=== PATIENT | male | born 1950 | race Caucasian/White ===

== ENCOUNTER 2021-09-30 18:16 | Outpatient (REF) | payer MEDICARE, MEDICAID, SELFPAY ==
[2021-09-30 18:27] LABS: Appearance Urine CLEAR; Color Urine YELLOW; Glucose Urine UA NEG (NEG); Leukocyte Esterase Urine TRACE (NEG); Nitrite Urine NEG (NEG); UACC Culture Trigger YES; Urine Blood NEG (NEG); Urine Ketones NEG (NEG); Urine Protein NEG (NEG-TRACE)
[2021-09-30 18:55] LABS: Mucus Urine 2+ /LPF; Squamous Epithelial Cell Urine 1+ /LPF
[2021-09-30 18:56] LABS: Bacteria Urine TRACE /LPF; RBC Urine 0-2 /HPF (0)
== END 2021-09-30 18:17 | disposition home or self-care (01) ==
LOC: HO.LNP 18:16
PROVIDERS: Visit Provider Nurse Practitioner Acute Care
DX: N39.0 Urinary tract infection, site not specified (principal)
CPT/HCPCS: 81001; 87086

== ENCOUNTER 2021-11-12 08:46 | Outpatient (REF) | payer MEDICARE, MEDICAID, SELFPAY ==
[2021-11-12 11:21] LABS: MANUAL DIFF FLAG NO
[2021-11-12 11:30] LABS: Basophils Percent Auto 0.3 % (0-2); Eosinophils Absolute Auto 0.2 X10*3/uL (0.0-0.4); Eosinophils Percent Auto 1.8 % (0-4); Hematocrit 43.2 % (42.0-52.0); Hemoglobin 13.7 g/dl (14.0-18.0); Imm Gran Abs Auto 0.03 X10*3/uL (0.00-0.03); Imm Gran Pct Auto 0.3 % (0.0-0.4); Lymphocytes Absolute Auto 3.1 X10*3/uL (1.2-4.9); Lymphocytes Percent Auto 29.4 % (20-40); Mean Corpuscular HGB Conc 31.7 g/dl (31.0-36.0); Mean Corpuscular Hemoglobin 31.6 pg (27.0-33.0); Mean Corpuscular Volume 99.8 fL (80.0-98.0); Mean Platelet Volume 9.7 fL (9.4-12.4); Monocytes Percent Auto 9.7 % (2-11); Neutrophils Absolute Auto 6.1 x10*3/uL (2.0-8.3); Neutrophils Percent Auto 58.5 % (45-73); Platelet Count 233 X10*3/uL (160-400); Red Blood Count 4.33 X10*6/uL (4.60-5.80); Red Cell Distribution Width 13.4 % (11.0-16.0); White Blood Count 10.5 X10*3/uL (4.8-10.8)
[2021-11-12 11:39] LABS: Estimated Average Glucose 183 mg/dL
[2021-11-12 12:21] LABS: Alanine Aminotransferase 35 U/L (0-40); Alkaline Phosphatase 67 U/L (39-117); Anion Gap 16 (12-20); Aspartate Amino Transferase 24 U/L (5-37); Bilirubin Total 0.7 mg/dL (0.0-1.0); Blood Urea Nitrogen 16 mg/dL (9-16); Calcium 9.3 mg/dL (8.4-10.2); Carbon Dioxide 28 mmol/L (22-29); Chloride 99 mmol/L (96-108); Cholesterol 138 mg/dL; Estimated Glomerular Filt Rate > 60; Glucose Random 168 mg/dL (60-115); HDL Cholesterol 47 mg/dL; LDL Cholesterol Calculated 57 mg/dl; Potassium 4.2 mmol/L (3.3-5.1); Sodium 139 mmol/L (135-145); Total Protein 7.1 g/dL (6.5-8.0); Triglycerides 173 mg/dL
[2021-11-12 12:23] LABS: Free T4 (Free Thyroxine) 1.13 ng/dL (0.71-1.85)
== END 2021-11-12 08:47 | disposition home or self-care (01) ==
LOC: HO.HMGCLDS 08:46
PROVIDERS: PCP Internal Medicine; Visit Provider Nurse Practitioner Acute Care
DX: I10 Essential (primary) hypertension (principal); E11.65 Type 2 diabetes mellitus with hyperglycemia; E78.00 Pure hypercholesterolemia, unspecified
CPT/HCPCS: 36415; 80053; 80061; 83036; 84439; 85025

== ENCOUNTER 2022-08-17 09:43 | Outpatient (REF) | payer MEDICARE, MEDICAID, SELFPAY ==
[2022-08-17 11:29] LABS: MANUAL DIFF FLAG NO
[2022-08-17 11:42] LABS: Basophils Percent Auto 0.3 % (0-2); Eosinophils Absolute Auto 0.2 X10*3/uL (0.0-0.4); Eosinophils Percent Auto 1.4 % (0-4); Hematocrit 41.4 % (42.0-52.0); Hemoglobin 13.6 g/dl (14.0-18.0); Imm Gran Abs Auto 0.04 X10*3/uL (0.00-0.03); Imm Gran Pct Auto 0.4 % (0.0-0.4); Lymphocytes Absolute Auto 2.3 X10*3/uL (1.2-4.9); Lymphocytes Percent Auto 21.9 % (20-40); Mean Corpuscular HGB Conc 32.9 g/dl (31.0-36.0); Mean Corpuscular Hemoglobin 31.3 pg (27.0-33.0); Mean Corpuscular Volume 95.2 fL (80.0-98.0); Mean Platelet Volume 9.6 fL (9.4-12.4); Monocytes Absolute Auto 0.9 X10*3/uL (0.1-1.2); Monocytes Percent Auto 8.8 % (2-11); Neutrophils Percent Auto 67.2 % (45-73); Platelet Count 263 X10*3/uL (160-400); Red Blood Count 4.35 X10*6/uL (4.60-5.80); Red Cell Distribution Width 12.8 % (11.0-16.0); White Blood Count 10.5 X10*3/uL (4.8-10.8)
[2022-08-17 12:12] LABS: Alanine Aminotransferase 15 U/L (0-40); Albumin Level 4.6 g/dL (3.5-5.0); Alkaline Phosphatase 64 U/L (39-117); Anion Gap 17 (12-20); Aspartate Amino Transferase 15 U/L (5-37); Bilirubin Total 0.7 mg/dL (0.0-1.0); Blood Urea Nitrogen 13 mg/dL (9-16); Calcium 9.4 mg/dL (8.4-10.2); Carbon Dioxide 29 mmol/L (22-29); Chloride 91 mmol/L (96-108); Cholesterol 131 mg/dL; Estimated Glomerular Filt Rate > 60; Glucose Random 146 mg/dL (60-115); HDL Cholesterol 51 mg/dL; LDL Cholesterol Calculated 52 mg/dl; Potassium 4.5 mmol/L (3.3-5.1); Sodium 132 mmol/L (135-145); Total Protein 7.3 g/dL (6.5-8.0); Triglycerides 143 mg/dL
[2022-08-17 12:18] LABS: Free T4 (Free Thyroxine) 1.15 ng/dL (0.71-1.85); Thyroid Stimulating Hormone 1.02 uIU/mL (0.32-4.0)
[2022-08-17 12:27] LABS: Appearance Urine Cloudy; Color Urine Yellow; Glucose Urine UA Negative (Negative); Leukocyte Esterase Urine Small (1+) (Negative); Nitrite Urine Negative (Negative); UMIC TRIGGER UA YES; Urine Blood Negative (Negative); Urine Ketones Negative (Negative); Urine Protein Negative (Neg-Trace)
[2022-08-17 12:31] LABS: Bacteria Urine None Seen (None Seen); Hyaline Casts Urine 0-2 /LPF (0-2); RBC Urine 0-2 /HPF (0-2); Squamous Epithelial Cell Urine 0-2 /HPF (0-2)
[2022-08-17 12:42] LABS: Creatinine Urine 101.51 mg/dL; Microalbum/Creatinine Ratio Ur 9.8 ug/mg cr
[2022-08-17 12:43] LABS: Folate 18.2 ng/mL (> or = 4.0); Vitamin B12 257 pg/mL (200-900)
== END 2022-08-17 09:44 | disposition home or self-care (01) ==
LOC: HO.HMGCLDS 09:43
PROVIDERS: PCP Internal Medicine; Visit Provider Internal Medicine
DX: E11.65 Type 2 diabetes mellitus with hyperglycemia (principal); E78.00 Pure hypercholesterolemia, unspecified
CPT/HCPCS: 36415; 80053; 80061; 81001; 82043; 82607; 82746; 84439; 84443; 85025

== ENCOUNTER 2023-07-29 12:37 | Outpatient (AMB) | payer MEDICARE, MEDICAID, SELFPAY ==
--- NOTE | 2023-07-29 13:35 | AM.OFFWIN_ITS ---
Intake Vital Signs 07/29/23 13:38 Weight 208 lb BP 130/90 H Blood Pressure Location Rt brachial Position Sitting Pulse 70 Pulse Source Pulse Oximeter Pulse Oximetry (%) 94 Oxygen Delivery Method Room Air Intake Visit Reasons: EP, bilateral leg swelling Intake Note: Patient here for bilat ankle and feet swelling which has been present for about 1 week. Patient Tobacco Use Status: Never used Tobacco Allergies JAYSON Inhibitors [Jayson Inhibitors] Allergy (Mild, Verified 07/29/23 13:39) RASH acetaminophen [From Tylenol] Allergy (Mild, Verified 07/29/23 13:39) ITCHING calcium carbonate [Calcium Carbonate] Allergy (Mild, Verified 07/29/23 13:39) VOMITS UP lisinopril Allergy (Unknown, Verified 07/29/23 13:39) Unknown Do you need a note to return to daycare/school/sports/work: No HPI HPI Comments History of Present Illness Details This is a 73-year-old male with a past medical history of COPD not currently oxygen dependent, hypertension, Diabetes, BPH, obstructive sleep ap erica and hyperlipidemia presenting for evaluation of lower extremity swelling that has been present for the past 1 week. Patient states that he first noticed swelling in his ankles approximately 1 week ago. He states that the swelling improves throughout the night if he sleeps in bed however does not improve completely if he sleeps in his recliner. Patient denies having any fevers, chills, cough, chest pain, shortness of breath, shortness of breath with exertion or pain in his lower extremities. Of note, the patient and his sister both deny any history of PE/ DVT and the patient is not currently maintained on blood thinners. [facility] Medical History DVT (deep venous thrombosis) Degenerative disc disease, lumbar RSD (reflex sympathetic dystrophy) Obstructive sleep apnea Hypercholesterolemia Obesity (BMI 30-39.9) BPH (benign prostatic hyperplasia) Type 2 diabetes mellitus with hyperglycemia Dementia Vitamin D deficiency Diabetic neuropathy COPD (chronic obstructive pulmonary disease) Hypertension Surgical History H/O elbow surgery History of cataract surgery History of cholecystectomy Family History Father Myocardial infarction Mother No problems noted. Social History Housing: Apartment Alcohol intake: former Patient Tobacco Use Status: Never used Tobacco e-Cigarette/Vaping Use: Never Used Second Hand Smoke Exposure: Yes service: No Current occupational status: retired and disabled Review of Systems Const All systems reviewed & are unremarkable except as noted in HPI and below Reports as per HPI, Denies chills, Denies fatigue, Denies fever(s), Denies weakness and Denies weight gain Card Denies dyspnea and Denies dyspnea on exertion Resp Denies chest congestion, Denies cough, Denies dyspnea and Denies dyspnea on exertion Skin/Breast Reports other (lower extremity edema) Neuro Denies weakness Psych Reports no additional complaints Endo Denies fatigue Physical Exam Vital Signs: Last Vital Signs Pulse 70 07/29/23 13:38 BP 130/90 H 07/29/23 13:38 Pulse Ox 94 07/29/23 13:38 Oxygen Delivery Method Room Air 07/29/23 13:38 Const General: cooperative, healthy appearing and comfortable Nutritional Appearance: well nourished Orientation/consciousness: patient oriented x3 (poor historian; sister provides most of HPI) Resp Effort & Inspection: normal respiratory effort, able to speak in complete sentences and no audible wheezes Auscultation: clear to auscultation bilaterally Cardio Rate: regular rate Rhythm: regular rhythm Skin General skin exam: no rashes or lesions noted (no erythema or warmth to touch upon evaluation of the distal LE bilaterally) Neuro General: patient oriented x3 (poor historian; sister provides most of HPI) Extrem Right lower extremity: edema (trace pitting edema from dorsal foot to 15cm distal from patella) Details: pitting Left lower extremity: edema (trace pitting edema from dorsal foot to 15cm distal from patella) Details: pitting Psych Appearance: grossly normal Mental Status: mental status grossly normal Assessment & Plan Assessment & Plan (1) Bilateral lower extremity edema: Comment: no overt pitting edema, no dyspnea, tachypnea or crackles noted Code(s): R60.0 - Localized edema Plan: Lasix 20mg daily for 5 days, elevate legs while at rest and follow-up with PCP within 5-7 days for a reevaluation of symptoms. Medications: New furosemide (Lasix) 20 mg PO DAILY 5 tabs 0RF Coding Level of Care Code Est Pt Level 3 (90291) Diagnoses Bilateral lower extremity edema R60.0 Time Spent (min) 20
[2023-07-29 13:38] VITALS: BP 130/90; PULSE 70; O2SAT 94
== END 2023-07-29 14:42 | disposition home or self-care (01) ==
PROVIDERS: PCP Internal Medicine; Visit Provider Physician Assistant
DX: R60.0 Localized edema (principal)
CPT/HCPCS: 99213

== ENCOUNTER 2023-12-29 11:30 | Outpatient (AMB) | payer MEDICARE, MEDICAID, SELFPAY ==
[2023-12-29 11:32] VITALS: BP 158/76; PULSE 58; O2SAT 98; BMI 34.7
--- NOTE | 2023-12-29 11:32 | MHC.PC.OV ---
Vital Signs 12/29/23 11:32 Height 5 ft 4 in Weight 201 lb 15.095 oz BMI 34.7 BP 158/76 H Blood Pressure Location Lt brachial Position Sitting Pulse 58 Pulse Source Pulse Oximeter Pulse Oximetry (%) 98 Oxygen Delivery Method Room Air Intake Visit Reasons: Follow up Intake Note: Patient is here to follow up Fiberglass Laminator Required: No Allergies JAYSON Inhibitors [Jayson Inhibitors] Allergy (Mild, Verified 12/29/23 11:52) RASH acetaminophen [From Tylenol] Allergy (Mild, Verified 12/29/23 11:52) ITCHING calcium carbonate [Calcium Carbonate] Allergy (Mild, Verified 12/29/23 11:52) VOMITS UP lisinopril Allergy (Unknown, Verified 12/29/23 11:52) Unknown Medication List - Last Reconciled 12/29/23 by Makenzie Hopson MD cholecalciferol (vitamin D3) 25 mcg PO DAILY furosemide (Lasix) 20 mg PO DAILY hydrochlorothiazide 25 mg PO DAILY ibuprofen 200 mg PO Q6H PRN losartan 100 mg (2 x 50 mg) PO DAILY metformin 500 mg PO BID 30 days metoprolol tartrate 100 mg PO BID simvastatin 40 mg PO QPM tamsulosin 0.4 mg PO DAILY [walker As directed] Tobacco use date assessed: 12/29/23 Fall risk assessment: No Falls in past year Last assessed Fall Risk: 12/29/23 Dental Screening Dental Screen Date: 12/29/23 HPI Follow up HPI Details 73-year-old obese male with controlled diabetes mellitus BPH hypercholesterolemia obstructive sleep apnea COPD hypertension coming in for follow-up last seen in July 2022. Patient's colonoscopy is due. July noted urgent care for leg swelling and was given furosemide. Did see the nurse practitioner in December 2022. [facility] Medical History DVT (deep venous thrombosis) Degenerative disc disease, lumbar RSD (reflex sympathetic dystrophy) Obstructive sleep apnea Hypercholesterolemia Obesity (BMI 30-39.9) BPH (benign prostatic hyperplasia) Type 2 diabetes mellitus with hyperglycemia Dementia Vitamin D deficiency Diabetic neuropathy COPD (chronic obstructive pulmonary disease) Hypertension Surgical History H/O elbow surgery History of cataract surgery History of cholecystectomy Family History Father Myocardial infarction Mother No problems noted. Social History Housing: Apartment Alcohol intake: former Patient Tobacco Use Status: Never used Tobacco e-Cigarette/Vaping Use: Never Used Second Hand Smoke Exposure: Yes service: No Current occupational status: retired and disabled Cognitive needs: No Hearing needs: No Vision needs: No Questionnaire Thrive Questionnaire Date Thrive assessed: 12/29/23 AUDIT C Alcohol Use Questionnaire (AUDIT-C) 1. How often do you have a drink containing alcohol?: Never 3. How often do you have six or more drinks on one occasion?: Never Total Score: 0 HANNA-7 AMB Questionnaire HANNA-7 Date HANNA - 7 assessed: 12/29/23 Source: Developed by Drs. Boris Torres, Maggy Del Rosario, Wilfredo Santiago and colleagues, with an educational chantel from [employer] Physical exam (Primary Care) Vital Signs: Last Vital Signs Pulse 58 12/29/23 11:32 BP 158/76 H 12/29/23 11:32 Pulse Ox 98 12/29/23 11:32 Oxygen Delivery Method Room Air 12/29/23 11:32 BMI result Body Mass Index 34.7 Tobacco/Smoking Status: Tobacco use Status Tobacco use date assessed 12/29/23 12/29/23 11:34 Patient Tobacco Use Status Never used Tobacco 12/29/23 11:34 e-Cigarette/Vaping Use Never Used 12/29/23 11:34 Thrive Assessment: Date of Thrive Assessment Date Thrive assessed 12/29/23 12/29/23 11:34 Const General: alert; No acute distress Eyes Conjunctivae: conjunctivae normal Resp Auscultation: clear to auscultation bilaterally Cardio Rate: regular rate Rhythm: regular rhythm GI Inspection: Yes normal to inspection Extrem General: Yes normal to inspection and No edema Results AMB Hemoglobin A1c AMB Hemoglobin A1c 6.0 % Last Edit by ANA MARIA Laura on 12/29/23 11:58 Results Reviewed Results Reviewed: Laboratory Last Values Hgb A1c (Clinic) 6.0 % (4.0-6.0) 12/29/23 11:20 Assessment and Plan Assessment & Plan (1) Type 2 diabetes mellitus with hyperglycemia: Code(s): E11.65 - Type 2 diabetes mellitus with hyperglycemia Qualifiers: Diabetes mellitus oysterman insulin use: without skilled nursing use Qualified Code(s): E11.65 - Type 2 diabetes mellitus with hyperglycemia Plan: Decrease the amount of carbohydrate intake, pasta, bread, rice and potatoes are all sugar and that is aside from all the sweet stuff, remember that fruits are good but they are Sweet also. Hemoglobin A1c goal of less than 7.0. Patient is on metformin 500 mg twice a day (2) Hypertension: Code(s): I10 - Essential (primary) hypertension Qualifiers: Hypertension type: essential hypertension Qualified Code(s): I10 - Essential (primary) hypertension Plan: Continue with blood pressure medication. Decrease salt intake and exercise patient takes hydrochlorothiazide 25 mg once a day losartan 100 mg once a day (3) COPD (chronic obstructive pulmonary disease): Code(s): J44.9 - Chronic obstructive pulmonary disease, unspecified Qualifiers: COPD type: emphysema Emphysema type: unspecified Qualified Code(s): J43.9 - Emphysema, unspecified Plan: Stable (4) Hypercholesterolemia: Code(s): E78.00 - Pure hypercholesterolemia, unspecified Plan: Avoid fried foods, chicken skin, eggs, butter margarine, pastries and meat. Be it pork or beef they have a lot of cholesterol LDL goal of less than 100 and triglyceride of less than 150 on simvastatin 40 mg once a day patient needs to get blood work (5) Obstructive sleep apnea: Comment: Declining CPAP Code(s): G47.33 - Obstructive sleep apnea (adult) (pediatric) Plan: Discussed about importance o treating obstructive sleep apnea (6) Shortness of breath on exertion: Code(s): R06.02 - Shortness of breath Orders: Orders Microalbumin, Random (w Creat) Today E11.65 - Type 2 diabetes mellitus with hyperglycemia Lipid Panel Today E11.65 - Type 2 diabetes mellitus with hyperglycemia, E78.00 - Pure hypercholesterolemia, unspecified Free T4 (Free Thyroxine) Today E11.65 - Type 2 diabetes mellitus with hyperglycemia Ferritin Today E11.65 - Type 2 diabetes mellitus with hyperglycemia Thyroid Stimulating Hormone Today E11.65 - Type 2 diabetes mellitus with hyperglycemia B Type Natriuretic Peptide Today R06.02 - Shortness of breath AMB Hemoglobin A1c Today E11.65 - Type 2 diabetes mellitus with hyperglycemia Complete Blood Count Auto Diff Today E11.65 - Type 2 diabetes mellitus with hyperglycemia Comprehensive Met. Panel Today E11.65 - Type 2 diabetes mellitus with hyperglycemia Creatinine Urine Today E11.65 - Type 2 diabetes mellitus with hyperglycemia Vitamin B12 and Folate Today E11.65 - Type 2 diabetes mellitus with hyperglycemia IRON PROFILE Today E11.65 - Type 2 diabetes mellitus with hyperglycemia Reticulocyte Count Today E11.65 - Type 2 diabetes mellitus with hyperglycemia XR chest 2V Today R06.02 - Shortness of breath CA lexiscan stress w lo Today R06.02 - Shortness of breath NM cardiolite stress test Today R06.02 - Shortness of breath UA w Microscopic Today E11.65 - Type 2 diabetes mellitus with hyperglycemia Referrals Neurology Referral F02.80 - Dementia in other diseases classified elsewhere, unspecified severity, without behavioral disturbance, psychotic disturbance, mood disturbance, and anxiety, G30.1 - Alzheimer's disease with late onset Coding Level of Care Code Est Pt Level 4 (51702) Diagnoses Type 2 diabetes mellitus with hyperglycemia, without long-term current use of insulin E11.65 Diabetes mellitus skilled nursing insulin use: without oysterman use Essential hypertension I10 Hypertension type: essential hypertension Pulmonary emphysema, unspecified emphysema type J43.9 COPD type: emphysema Emphysema type: unspecified Hypercholesterolemia E78.00 Obstructive sleep apnea G47.33 Shortness of breath on exertion R06.02
== END 2023-12-29 12:51 | disposition home or self-care (01) ==
PROVIDERS: PCP Internal Medicine; Visit Provider Internal Medicine
DX: E11.65 Type 2 diabetes mellitus with hyperglycemia (principal); I10 Essential (primary) hypertension; J43.9 Emphysema, unspecified; E78.00 Pure hypercholesterolemia, unspecified; G47.33 Obstructive sleep apnea (adult) (pediatric); R06.02 Shortness of breath
CPT/HCPCS: 83036; 99214

== ENCOUNTER → 2024-01-27 08:47 | Outpatient (REF) | payer MEDICARE, MEDICAID, SELFPAY ==
--- NOTE | ~2024-01-27 | XR_ITS ---
EXAMINATION: XR CHEST 2 VIEWS CLINICAL INFORMATION: Shortness of breath. COMPARISON: Chest radiographs dated 10/08/2019. TECHNIQUE: Frontal and lateral views of the chest were obtained. FINDINGS: The heart, great vessels, pulmonary vasculature and mediastinum are normal. The lungs show no focal infiltrate, effusion or pneumothorax. There is no acute osseous abnormality. There is multi-level marked thoracolumbar spondylosis. There are upper abdominal surgical clips. XR/XR chest 2V IMPRESSION: No active cardiopulmonary disease.
[2024-01-27 09:05] LABS: MANUAL DIFF FLAG NO
[2024-01-27 10:14] LABS: Basophils Percent Auto 0.3 % (0-2); Eosinophils Absolute Auto 0.1 X10*3/uL (0.0-0.4); Eosinophils Percent Auto 1.2 % (0-4); Hematocrit 37.8 % (42.0-52.0); Hemoglobin 12.7 g/dl (14.0-18.0); Imm Gran Abs Auto 0.05 X10*3/uL (0.00-0.03); Imm Gran Pct Auto 0.5 % (0.0-0.4); Immature Retic Fraction 11.3 % (2.3-13.4); Lymphocytes Absolute Auto 1.4 X10*3/uL (1.2-4.9); Lymphocytes Percent Auto 14.9 % (20-40); Mean Corpuscular HGB Conc 33.6 g/dl (31.0-36.0); Mean Corpuscular Hemoglobin 32.2 pg (27.0-33.0); Mean Corpuscular Volume 95.7 fL (80.0-98.0); Mean Platelet Volume 9.3 fL (9.4-12.4); Monocytes Absolute Auto 0.7 X10*3/uL (0.1-1.2); Monocytes Percent Auto 7.3 % (2-11); Neutrophils Percent Auto 75.8 % (45-73); Platelet Count 233 X10*3/uL (160-400); Red Blood Count 3.95 X10*6/uL (4.60-5.80); Retic HGB Equivalent 34.5 pg (30.0-35.0); Reticulocyte Percent 1.6 % (0.5-1.8); Reticulocytes Absolute 0.063 X10*6/uL (0.026-0.095); White Blood Count 9.2 X10*3/uL (4.8-10.8)
[2024-01-27 11:10] LABS: Appearance Urine Clear; Color Urine Yellow; Glucose Urine UA Negative (Negative); Leukocyte Esterase Urine Moderate (2+) (Negative); Nitrite Urine Negative (Negative); Specific Gravity - Urine 1.025 (1.005-1.025); UMIC TRIGGER UA YES; Urine Blood Negative (Negative); Urine Ketones Trace mg/dL (Negative); Urine Protein Negative (Neg-Trace)
[2024-01-27 11:15] LABS: B Type Natriuretic Peptide 88 pg/mL (<100)
[2024-01-27 11:22] LABS: Alanine Aminotransferase 14 U/L (0-40); Albumin Level 4.1 g/dL (3.5-5.0); Alkaline Phosphatase 68 U/L (39-117); Anion Gap 11 (12-20); Aspartate Amino Transferase 13 U/L (5-37); Bilirubin Total 0.4 mg/dL (0.0-1.0); Blood Urea Nitrogen 17 mg/dL (9-16); Calcium 9.5 mg/dL (8.4-10.2); Carbon Dioxide 30 mmol/L (22-29); Chloride 92 mmol/L (96-108); Cholesterol 112 mg/dL (<200); Estimated Glomerular Filt Rate > 60; Glucose Random 120 mg/dL (60-115); HDL Cholesterol 58 mg/dL (>40); Iron 59 mcg/dL (45-160); LDL Cholesterol Calculated 39 mg/dL (<100); Percent Iron Saturation 16 % (15-50); Potassium 3.8 mmol/L (3.3-5.1); Sodium 129 mmol/L (135-145); Total Iron Binding Capacity 366 mcg/dL (228-428); Triglycerides 77 mg/dL (<150); Unsaturated Iron Binding 307 ug/dL
[2024-01-27 11:33] LABS: Bacteria Urine None Seen (None Seen); Hyaline Casts Urine 0-2 /LPF (0-2); RBC Urine 0-2 /HPF (0-2); Squamous Epithelial Cell Urine 0-2 /HPF (0-2)
[2024-01-27 11:40] LABS: Ferritin 86 ng/mL (20-250); Free T4 (Free Thyroxine) 1.23 ng/dL (0.71-1.85)
[2024-01-27 11:48] LABS: Folate 13.7 ng/mL (> or = 4.0); Vitamin B12 299 pg/mL (200-900)
[2024-01-27 12:52] LABS: Creatinine Urine 139.82 mg/dL; Microalbum/Creatinine Ratio Ur 15.7 ug/mg cr (<30)
== END ==
LOC: HO.CARD 08:47
PROVIDERS: PCP Internal Medicine; Visit Provider Internal Medicine
DX: R06.02 Shortness of breath (principal); E11.65 Type 2 diabetes mellitus with hyperglycemia; E78.00 Pure hypercholesterolemia, unspecified
CPT/HCPCS: 36415; 71046; 80053; 80061; 81001; 82043; 82570; 82607; 82728; 82746; 83540; 83880; 84439; 84443; 85025; 85045

== ENCOUNTER 2024-04-05 09:58 | Outpatient (AMB) | payer MEDICARE, MEDICAID, SELFPAY ==
[2024-04-05 11:19] VITALS: BP 146/86; PULSE 84; O2SAT 98
--- NOTE | 2024-04-05 11:19 | MHC.PC.OV ---
Vital Signs 04/05/24 11:19 Height 5 ft 4 in BMI Reason not done Patient refused/unable BP 146/86 H Blood Pressure Location Lt brachial Position Sitting Pulse 84 Pulse Source Pulse Oximeter Pulse Oximetry (%) 98 Oxygen Delivery Method Room Air Intake Visit Reasons: DM Mining Engineering Technologist Required: No Coiler: Not Required per policy Accompanied by: Self / Same As Patient Allergies JAYSON Inhibitors [Jayson Inhibitors] Allergy (Mild, Verified 04/05/24 11:19) RASH acetaminophen [From Tylenol] Allergy (Mild, Verified 04/05/24 11:19) ITCHING calcium carbonate [Calcium Carbonate] Allergy (Mild, Verified 04/05/24 11:19) VOMITS UP lisinopril Allergy (Unknown, Verified 04/05/24 11:19) Unknown Medication List - Last Reconciled 04/05/24 by Makenzie Hopson MD cholecalciferol (vitamin D3) 25 mcg PO DAILY [Chux PADS As directed] [DEPENDS LARGE As directed] [DIAPER ADULT Large As directed] furosemide (Lasix) 20 mg PO DAILY [hospital bed with rails As directed] ibuprofen 200 mg PO Q6H PRN losartan 100 mg (2 x 50 mg) PO DAILY melatonin 10 mg PO BEDTIME PRN metformin 500 mg PO BID 30 days metoprolol tartrate 100 mg PO BID mirtazapine 7.5 mg PO BEDTIME nifedipine ER 30 mg PO DAILY simvastatin 40 mg PO QPM tamsulosin 0.4 mg PO DAILY [walker As directed] Tobacco use date assessed: 12/29/23 Fall risk assessment: 1 Fall in past year Last assessed Fall Risk: 04/05/24 Dental Screening Dental Screen Date: 12/29/23 HPI DM HPI Details 67-year-old obese male with hypertension hypercholesterolemia GERD last seen in 02/17/2023 coming in for follow-up. Patient had colonoscopy last in 2018. Received also a form regarding hospital bed request. Patient had blood work done in December showing hyponatremia. BP is high. PAtient states wants a hospital bed due to having paranoia of lying down and falling - does have side rails but insist on hospital bed clarification with them they want the hospital bed just for the paranoia problem. But discussed with them that insurance will not pay for this. Otherwise patient added on wanting prescription for incontinence products. COUNTS INCLUDE 234 BEDS AT THE [facility] Medical History DVT (deep venous thrombosis) Degenerative disc disease, lumbar RSD (reflex sympathetic dystrophy) Obstructive sleep apnea Hypercholesterolemia Obesity (BMI 30-39.9) BPH (benign prostatic hyperplasia) Type 2 diabetes mellitus with hyperglycemia Dementia Vitamin D deficiency Diabetic neuropathy COPD (chronic obstructive pulmonary disease) Hypertension Surgical History H/O elbow surgery History of cataract surgery History of cholecystectomy Family History Father Myocardial infarction Mother No problems noted. Social History Housing: Apartment Alcohol intake: former Patient Tobacco Use Status: Never used Tobacco e-Cigarette/Vaping Use: Never Used Second Hand Smoke Exposure: Yes service: No Current occupational status: retired and disabled Cognitive needs: No Hearing needs: No Vision needs: No Questionnaire PHQ-9 Over the last 2 weeks, how often have you been bothered by any of the following problems? 1. Little interest or pleasure in doing things: not at all 2. Feeling down, depressed, or hopeless: not at all 3. Trouble falling or staying asleep, or sleeping too much: not at all 4. Feeling tired or having little energy: not at all 5. Poor appetite or overeating: not at all 6. Feeling bad about yourself - or that you are a failure or have let yourself or your family down: not at all 7. Trouble concentrating on things, such as reading the newspaper or watching television: not at all 8. Moving or speaking so slowly that other people could have noticed. Or the opposite - being so fidgety or restless that you have been moving around a lot more than usual: not at all 9. Thoughts that you would be better off or of hurting yourself in some way: not at all Total score: 0 Depression Screening Interpretation: Negative Depression Screening Done: Yes Source: Developed by Drs. Boris Torres, Maggy Del Rosario, Wilfredo Santiago and colleagues, with an educational chantel from [employer]. Thrive Questionnaire Date Thrive assessed: 12/29/23 HANNA-7 AMB Questionnaire HANNA-7 Date HANNA - 7 assessed: 12/29/23 Source: Developed by Drs. Boris Torres, Maggy Del Rosario, Wilfredo Santiago and colleagues, with an educational chantel from [employer]. Physical exam (Primary Care) Vital Signs: Last Vital Signs Pulse 84 04/05/24 11:19 BP 146/86 H 04/05/24 11:19 Pulse Ox 98 04/05/24 11:19 Oxygen Delivery Method Room Air 04/05/24 11:19 Tobacco/Smoking Status: Tobacco use Status Tobacco use date assessed 12/29/23 04/05/24 11:20 Patient Tobacco Use Status Never used Tobacco 04/05/24 11:20 e-Cigarette/Vaping Use Never Used 04/05/24 11:20 PHQ-9: PHQ-9 Score PHQ-9: Total score 0 04/05/24 11:37 Depression Screening Interpretation: Negative Thrive Assessment: Date of Thrive Assessment Date Thrive assessed 12/29/23 04/05/24 11:20 Const General: alert; No acute distress Eyes Conjunctivae: conjunctivae normal Resp Auscultation: clear to auscultation bilaterally Cardio Rate: regular rate Rhythm: regular rhythm GI Inspection: Yes normal to inspection Extrem General: Yes normal to inspection and No edema Results AMB Hemoglobin A1c AMB Hemoglobin A1c 6.4 % Last Edit by ANA MARIA Trinidad on 04/05/24 11:37 Results Reviewed Results Reviewed: Laboratory Last Values Hgb A1c (Clinic) 6.4 % (4.0-6.0) H 04/05/24 11:30 Assessment and Plan Assessment & Plan (1) Type 2 diabetes mellitus with hyperglycemia: Code(s): E11.65 - Type 2 diabetes mellitus with hyperglycemia Qualifiers: Diabetes mellitus usp insulin use: without intermediate school teacher use Qualified Code(s): E11.65 - Type 2 diabetes mellitus with hyperglycemia Plan: Decrease the amount of carbohydrate intake, pasta, bread, rice and potatoes are all sugar and that is aside from all the sweet stuff, remember that fruits are good but they are Sweet also. Hemoglobin A1c goal of less than 7.0 on metformin 500 mg twice a day (2) Hyponatremia: Code(s): E87.1 - Hypo-osmolality and hyponatremia Plan: Patient on hydrochlorothiazide and Lasix. Will advised patient to stop hydrochlorothiazide. (3) Obstructive sleep apnea: Comment: Declining CPAP Code(s): G47.33 - Obstructive sleep apnea (adult) (pediatric) Plan: Discussed the patient the importance of helping obstructive sleep apnea. (4) Obesity (BMI 30-39.9): Code(s): E66.9 - Obesity, unspecified Plan: Diet and exercise (5) BPH (benign prostatic hyperplasia): Code(s): N40.0 - Benign prostatic hyperplasia without lower urinary tract symptoms Plan: Continue with tamsulosin (6) Hypercholesterolemia: Code(s): E78.00 - Pure hypercholesterolemia, unspecified Plan: Avoid fried foods, chicken skin, eggs, butter margarine, pastries and meat. Be it pork or beef they have a lot of cholesterol LDL goal of less than 100 and triglyceride of less than 150.ponatremia and retest blood work patient on simvastatin 40 mg once a day (7) Hypertension: Code(s): I10 - Essential (primary) hypertension Qualifiers: Hypertension type: essential hypertension Qualified Code(s): I10 - Essential (primary) hypertension Plan: Continue with blood pressure medication. Decrease salt intake and exercise on metoprolol 100 mg twice a day losartan 100 mg once a day. Will discontinue hydrochlorothiazide due to the hyponatremia. Will add nifedipine to help get the blood pressure under better control. (8) COPD (chronic obstructive pulmonary disease): Code(s): J44.9 - Chronic obstructive pulmonary disease, unspecified Qualifiers: COPD type: emphysema Emphysema type: unspecified Qualified Code(s): J43.9 - Emphysema, unspecified Plan: Stable not using any inhaler. (9) Dementia: Code(s): F03.90 - Unspecified dementia, unspecified severity, without behavioral disturbance, psychotic disturbance, mood disturbance, and anxiety Qualifiers: Dementia type: Alzheimer's Alzheimer's disease onset: late-onset Dementia behavioral disturbance: without behavioral disturbance Qualified Code(s): G30.1 - Alzheimer's disease with late onset; F02.80 - Dementia in other diseases classified elsewhere without behavioral disturbance Plan: Family was concerned that patient is getting paranoid and not able to sleep. Prescription for mirtazapine sent in. (10) Urinary incontinence: Code(s): R32 - Unspecified urinary incontinence Plan: Incontinence product printed as requested. Orders: Orders Comprehensive Met. Panel Today E87.1 - Hypo-osmolality and hyponatremia AMB Hemoglobin A1c Today E11.65 - Type 2 diabetes mellitus with hyperglycemia Medications: New mirtazapine 7.5 mg PO BEDTIME 30 tabs 2RF F02.80 - Dementia in other diseases classified elsewhere, unspecified severity, without behavioral disturbance, psychotic disturbance, mood disturbance, and anxiety, G30.1 - Alzheimer's disease with late onset [Chux PADS] As directed 100 ea 12RF N40.0 - Benign prostatic hyperplasia without lower urinary tract symptoms, R32 - Unspecified urinary incontinence melatonin 10 mg PO BEDTIME PRN 30 caps 4RF sleep nifedipine ER 30 mg PO DAILY 30 tabs 3RF I10 - Essential (primary) hypertension [DEPENDS LARGE] As directed 100 ea 12RF N40.0 - Benign prostatic hyperplasia without lower urinary tract symptoms, R32 - Unspecified urinary incontinence [DIAPER ADULT Large] As directed 100 ea 12RF N40.0 - Benign prostatic hyperplasia without lower urinary tract symptoms, R32 - Unspecified urinary incontinence Refilled tamsulosin 0.4 mg PO DAILY 90 caps 1RF N40.0 - Benign prostatic hyperplasia without lower urinary tract symptoms Discontinued hydrochlorothiazide Discontinued Reason: Doctor's Order 25 mg PO DAILY 90 tabs 2RF Coding Level of Care Code Est Pt Level 4 (41681) Complex EM visit Add On G2211 Diagnoses Type 2 diabetes mellitus with hyperglycemia, without long-term current use of insulin E11.65 Diabetes mellitus intermediate school teacher insulin use: without intermediate school teacher use Hyponatremia E87.1 Obstructive sleep apnea G47.33 Obesity (BMI 30-39.9) E66.9 BPH (benign prostatic hyperplasia) N40.0 Hypercholesterolemia E78.00 Essential hypertension I10 Hypertension type: essential hypertension Pulmonary emphysema, unspecified emphysema type J43.9 COPD type: emphysema Emphysema type: unspecified Late onset Alzheimer's dementia without behavioral disturbance G30.1; F02.80 Dementia type: Alzheimer's Alzheimer's disease onset: late-onset Dementia behavioral disturbance: without behavioral disturbance Urinary incontinence R32
== END 2024-04-05 14:55 | disposition home or self-care (01) ==
PROVIDERS: PCP Internal Medicine; Visit Provider Internal Medicine
DX: E11.65 Type 2 diabetes mellitus with hyperglycemia (principal); J43.9 Emphysema, unspecified; G30.1 Alzheimer's disease with late onset; F02.80 Dementia in other diseases classified elsewhere, unspecified severity, without behavioral disturbance, psychotic disturbance, mood disturbance, and anxiety; E87.1 Hypo-osmolality and hyponatremia; G47.33 Obstructive sleep apnea (adult) (pediatric); E66.9 Obesity, unspecified; N40.0 Benign prostatic hyperplasia without lower urinary tract symptoms; E78.00 Pure hypercholesterolemia, unspecified; I10 Essential (primary) hypertension; R32 Unspecified urinary incontinence
CPT/HCPCS: 83036; 99214; G2211